=== PATIENT | female | born 1940 | race Caucasian/White ===

== ENCOUNTER 2018-02-04 11:22 | Inpatient (IN) | payer OTHER ==
[~2018-02-04] VITALS: Ht 165.1 cm; Wt 79.8 kg
[2018-02-04] MEDS ORDERED: SYNTHROID50 MCG (11:47)
[2018-02-04] MEDS ORDERED: CLOPIDOGREL BIS75 MG (11:47)
[2018-02-04] MEDS ORDERED: MONTELUKAST SOD10 MG (11:48)
[2018-02-04] MEDS ORDERED: SIMVASTATIN20 MG (11:48)
[2018-02-04] MEDS ORDERED: FAMOTIDINE40 MG (11:54)
[2018-02-04] MEDS ORDERED: CLONAZEPAM0.5 MG (11:55)
[2018-02-04] MEDS ORDERED: ANASTROZOLE1 MG (11:56)
[2018-02-04] MEDS ORDERED: MAXIMUM D310000 UNIT (11:56)
[2018-02-04] MEDS ORDERED: NOVOLOG MI100 UNIT/2 (11:57)
[2018-02-04] MEDS ORDERED: AMLODIPINE BESYL5 MG (11:57)
[2018-02-04] MEDS ORDERED: ALDACTONE25 MG (11:58)
[2018-02-04] MEDS ORDERED: LEVALBUTER0.63 MG/3 (11:58)
[2018-02-04] MEDS ORDERED: TANDEM PLUS CA1 EACH (11:58)
== END 2018-02-06 17:13 | disposition home or self-care (01) | DRG 379 ==
LOC: ER 11:22 → SEC-K 16:21 → MEDI 17:50
PROC: 3E0F7GC Introduction of Other Therapeutic Substance into Respiratory Tract, Via Natural or Artificial Opening (ICD-10-PCS; 2018-02-05)
PROC: 0DBN8ZX Excision of Sigmoid Colon, Via Natural or Artificial Opening Endoscopic, Diagnostic (ICD-10-PCS; principal; 2018-02-06)
DX: K92.1 Melena (principal); D50.0 Iron deficiency anemia secondary to blood loss (chronic); E11.22 Type 2 diabetes mellitus with diabetic chronic kidney disease; I13.10 Hypertensive heart and chronic kidney disease without heart failure, with stage 1 through stage 4 chronic kidney disease, or unspecified chronic kidney disease; N18.1 Chronic kidney disease, stage 1; I25.5 Ischemic cardiomyopathy; E03.8 Other specified hypothyroidism; E78.4 Other hyperlipidemia; K63.5 Polyp of colon